=== PATIENT | male | born 1980 | race Caucasian/White ===

== ENCOUNTER 2024-03-12 13:37 | Emergency (ER) | payer OTHER ==
[2024-03-12] MEDS ORDERED: Naloxone 0.4 MG/ML SDV IVPUSH PRN ×2 (13:59→14:23)
[2024-03-12] MEDS: HYDROmorphone 0.5 MG/0.5 ML Syringe IVPUSH ONE (14:00)
[2024-03-12 14:01] LABS: BASOPHILS ABSOLUTE AUTO 0.03 K/uL (0.00-0.10); BASOPHILS PERCENT AUTO 0.2 % (0.1-1.3); EOSINOPHILS PERCENT AUTO 0.1 % (0.0-5.4); HEMATOCRIT 39.2 % (38.4-49.7); HEMOGLOBIN 14.3 g/dL (12.9-16.9); IMMATURE GRAN ABSOLUTE AUTO 0.12 K/uL (0.00-0.23); IMMATURE GRAN PERCENT AUTO 0.8 % (0.0-0.7); LYMPHOCYTES ABSOLUTE AUTO 1.21 K/uL (0.8-3.3); LYMPHOCYTES PERCENT AUTO 7.8 % (11.4-47.7); MEAN CORPUSCULAR HGB CONC 36.5 g/dL (31.6-35.5); MONOCYTES ABSOLUTE AUTO 0.95 K/uL (0.20-0.90); MONOCYTES PERCENT AUTO 6.1 % (3.3-12.6); NEUTROPHILS ABSOLUTE AUTO 13.14 K/uL (1.0-7.6); PLATELET COUNT,PLT 172 K/uL (130-375); RED BLOOD CELL COUNT 4.61 M/uL (4.14-5.76); WHITE BLOOD CELL COUNT,WBC 15.5 K/uL (3.2-11.0)
[2024-03-12 14:02] LABS: EOSINOPHILS ABSOLUTE AUTO 0.01 K/uL (0.00-0.40)
[2024-03-12 14:18] LABS: PROTHROMBIN TIME 10.6 sec (9.2-10.6)
[2024-03-12 14:25] LABS: A/G RATIO 1.4 (1.2-2.2); ALANINE AMINOTRANSFERASE,ALT 136 U/L (12-78); ALBUMIN 4.2 g/dL (3.4-5.0); ALKALINE PHOSPHATASE 62 U/L (46-116); ASPARTATE AMNIOTRANSFERASE,AST 123 U/L (15-37); BILIRUBIN TOTAL 1.3 mg/dL (0.2-1.0); BLOOD UREA NITROGEN,BUN 22 mg/dL (7-18); CALCIUM 9.1 mg/dL (8.5-10.1); CARBON DIOXIDE,CO2 27 mmol/L (21-32); CHLORIDE,CL 104 mmol/L (100-108); CREATININE 1.2 mg/dL (0.8-1.3); EST CRCL DRUG DOSING (CG) 81.01 mL/min; ESTIMATED GFR 78 mL/min (>60); GLUCOSE RANDOM 161 mg/dL (74-106); POTASSIUM,K 3.5 mmol/L (3.6-5.2); PROTEIN TOTAL,TP 7.1 g/dL (6.4-8.2); SODIUM,NA 141 mmol/L (140-148)
[2024-03-12] MEDS: HYDROmorphone 1 MG/ML Syringe IVPUSH PRN (14:30)
[2024-03-12] MEDS: Sodium Chloride 0.9% 1,000 ML IV ONE (14:30)
[2024-03-12 14:32] LABS: ANION GAP 13.5 mmol/L (5.0-14.0)
[2024-03-12 14:33] LABS: TROPONIN I HIGH SENSITIVITY 72.8 pg/mL (<=60.3)
== END 2024-03-12 16:11 | disposition critical access hospital (66) ==
LOC: JP.ED 13:37
DX: S06.0X9A Concussion with loss of consciousness of unspecified duration, initial encounter (principal); S12.600A Unspecified displaced fracture of seventh cervical vertebra, initial encounter for closed fracture; S42.001A Fracture of unspecified part of right clavicle, initial encounter for closed fracture; S22.081A Stable burst fracture of T11-T12 vertebra, initial encounter for closed fracture; Z79.899 Other long term (current) drug therapy; Z88.0 Allergy status to penicillin; V86.56XA Driver of dirt bike or motor/cross bike injured in nontraffic accident, initial encounter; Y93.89 Activity, other specified
CPT/HCPCS: 36415; 70450; 71045; 71045-26; 71250; 72125; 72170; 72170-26; 73090-26-RT; 73090-RT; 74176; 76377; 80053; 80307; 83605; 84484; 85025; 85610; 93005; 93010; 96374; 99285; 99285-25; J1170; J7030